=== PATIENT | female | born 1945 | race Caucasian/White ===

== ENCOUNTER 2016-06-20 13:57 | Emergency (ER) | payer MEDICARE, OTHER ==
[~2016-06-20] VITALS: Ht 157.5 cm; Wt 68.0 kg
[2016-06-20 14:46] LABS: ANION GAP 11 (5-14); CALCIUM, SERUM 10.4 mg/dL (8.5-10.1); CARBON DIOXIDE 29 mmol/L (21-32); CHLORIDE 100 mmol/L (98-107); CREATININE 0.9 mg/dL (0.6-1.3); GFR 62 mL/min (>60); GLUCOSE 122 mg/dL (74-106); SODIUM SERUM 136 mmol/L (136-145); UREA NITROGEN, BLOOD 17 mg/dL (7-18)
[2016-06-20 14:52] LABS: BASOPHILS # (AUTO) 0.2 /CMM (0.0-0.2); BASOPHILS % (AUTO) 1.5 % (0.0-2.0); DIFF TOTAL % 100 %; EOSINOPHILS % (AUTO) 0.3 % (0.0-6.0); HEMATOCRIT 46 % (33-45); HEMOGLOBIN 15.3 g/dL (11.5-14.8); LYMPHOCYTES # (AUTO) 1.9 /CMM (0.8-4.8); LYMPHOCYTES % (AUTO) 13.7 % (20.0-44.0); MEAN CORPUSCULAR HEMOGLOBIN 29 PG (26.0-33.0); MEAN CORPUSCULAR HGB CONC 34 g/dl (31.0-36.0); MEAN CORPUSCULAR VOLUME 86 fL (82-100); MONOCYTES # (AUTO) 0.6 /CMM (0.1-1.30); NEUTROPHILS # (AUTO) 11.2 /CMM (1.8-8.9); NEUTROPHILS % (AUTO) 80.5 % (43.0-81.0); PLATELET COUNT (AUTO) 288 /CMM (150-450); RED BLOOD CELL COUNT(AUTO) 5.32 MIL/uL (4.0-5.2); WHITE BLOOD COUNT (AUTO) 13.9 K/uL (4.3-11.0)
[2016-06-20 14:56] LABS: TROPONIN I < 0.017 ng/mL (0.00-0.056)
[2016-06-20 15:18] VITALS: BP 146/84
== END 2016-06-20 15:20 | disposition home or self-care (01) ==
LOC: ER 14:03
DX: I10 Essential (primary) hypertension (principal)
CPT/HCPCS: 36415; 80048-TC; 84484-TC; 85025-TC; A4606; Z7610

== ENCOUNTER 2018-02-23 18:02 | Emergency (ER) | payer MEDICARE, OTHER ==
[~2018-02-23] VITALS: Ht 157.5 cm; Wt 102.5 kg
--- NOTE | 2018-02-23 18:05 | NUR ---
BIB [facility] 89 FROM CLINIC,SYNCOPE WHILE SITTING IN A CHAIR FOR AN X RAY. CURRENTLY A/OX 4, BREATHING EVEN AND UNLABORED. NO SOB, NAD, VITALS STABLE. SAFETY AND COMFORT MEASURES IN PLACE. AWAITING MD ORDERS.
[2018-02-23] MEDS ORDERED: KETOROLAC TROMETHAMINE INJ 30 MG/ML VIAL ONE (18:18)
[2018-02-23] MEDS ORDERED: IV NS 0.9% 500 ML BAG IV ONE (18:30)
[2018-02-23] MEDS ORDERED: KETOROLAC TROMETHAMINE INJ 30 MG/ML VIAL IV ONE (18:30)
[2018-02-23 18:35] LABS: BASOPHILS # (AUTO) 0.1 /CMM (0.0-0.2); BASOPHILS % (AUTO) 0.9 % (0.0-2.0); EOSINOPHILS % (AUTO) 0.4 % (0.0-6.0); HEMATOCRIT 45 % (33-45); HEMOGLOBIN 14.8 g/dL (11.5-14.8); LYMPHOCYTES # (AUTO) 1.6 /CMM (0.8-4.8); LYMPHOCYTES % (AUTO) 10.7 % (20.0-44.0); MEAN CORPUSCULAR HGB CONC 33 g/dl (31.0-36.0); MEAN CORPUSCULAR VOLUME 87 fL (82-100); MONOCYTES # (AUTO) 0.5 /CMM (0.1-1.30); MONOCYTES % (AUTO) 3.2 % (2.0-12.0); NEUTROPHILS # (AUTO) 12.3 /CMM (1.8-8.9); NEUTROPHILS % (AUTO) 84.8 % (43.0-81.0); PLATELET COUNT (AUTO) 289 /CMM (150-450); RDW COEFFICIENT OF VARIATION 13.6 (11.5-15.0); RED BLOOD CELL COUNT(AUTO) 5.16 MIL/uL (4.0-5.2); WHITE BLOOD COUNT (AUTO) 14.6 K/uL (4.3-11.0)
[2018-02-23 18:42] LABS: POTASSIUM 3.7 mmol/L (3.5-5.1)
--- NOTE | 2018-02-23 18:48 | NUR ---
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
--- NOTE | 2018-02-23 19:45 | NUR ---
IV removed. Catheter intact and site benign. Pressure and 4x4 applied to site. No bleeding noted. Patient discharged to home in stable condition. Written and verbal after care instructions given. Patient verbalizes understanding of instruction. ambulatory with a steady gait noted. pt aaox4 no acute distress noted, resp even and unlabored. pt family member at bedside to take pt home.
[2018-02-23 19:47] VITALS: BP 137/67
== END 2018-02-23 19:57 | disposition home or self-care (01) ==
LOC: ER 18:03
DX: S42.431A Displaced fracture (avulsion) of lateral epicondyle of right humerus, initial encounter for closed fracture (principal); R55 Syncope and collapse; I10 Essential (primary) hypertension; Z98.890 Other specified postprocedural states; W01.0XXA Fall on same level from slipping, tripping and stumbling without subsequent striking against object, initial encounter; Y93.89 Activity, other specified; Y92.89 Other specified places as the place of occurrence of the external cause; Y99.8 Other external cause status
CPT/HCPCS: 36415; 73080-TC; 80048-TC; 85025-TC; A4606; J1885; J7040; Z7610

== ENCOUNTER 2021-08-21 11:25 | Emergency (ER) | payer MEDICARE, OTHER ==
[~2021-08-21] VITALS: Ht 154.9 cm; Wt 90.7 kg
--- NOTE | 2021-08-21 11:59 | NUR ---
pt came in c/o neck pain which started yesturday, pt c/o neck pain 03/07.
[2021-08-21] MEDS ORDERED: ACETAMINOPHEN 325 MG TABLET PO ONE (12:30)
[2021-08-21] MEDS ORDERED: LIDOCAINE 5% (PATCH) 1 EA PATCH TP SCH (12:30)
[2021-08-21] MEDS ORDERED: DIAZEPAM 5 MG TABLET PO ONE ×2 (12:30)
[2021-08-21] MEDS ORDERED: ACETAMINOPHEN 325 MG TABLET ONE (12:36)
[2021-08-21] MEDS ORDERED: DIAZEPAM 5 MG TABLET ONE (12:36)
--- NOTE | 2021-08-21 13:02 | NUR ---
TAKEN TO CT
--- NOTE | 2021-08-21 14:30 | NUR ---
Patient discharged to home in stable condition. Written and verbal after care instructions given. Patient verbalizes understanding of instruction.
[2021-08-21 14:31] VITALS: BP 135/84
== END 2021-08-21 14:31 | disposition home or self-care (01) ==
LOC: ER 11:31
DX: M43.6 Torticollis (principal); I10 Essential (primary) hypertension; Z98.891 History of uterine scar from previous surgery
CPT/HCPCS: 72125-TC

== ENCOUNTER 2022-01-21 12:12 | Emergency (ER) | payer MEDICARE, OTHER ==
[~2022-01-21] VITALS: Ht 162.6 cm; Wt 81.6 kg
--- NOTE | 2022-01-21 12:15 | NUR ---
[id number] C/O LEFT WRIST PAIN AND SWELLING S/P TRIP AND FALL. PLACED ON BED, AAOX4, BREATHING EVEN AND UNLABORED, MELISSA FREE.
--- NOTE | 2022-01-21 12:45 | NUR ---
X-RAY TECH AT BED SIDE
[2022-01-21] MEDS ORDERED: NAPR-1192 PO (13:26)
--- NOTE | 2022-01-21 14:45 | NUR ---
Patient discharged to home in stable condition. Written and verbal after care instructions given. Patient verbalizes understanding of instruction.
[2022-01-21 14:51] VITALS: BP 135/80
== END 2022-01-21 19:00 | disposition home or self-care (01) ==
LOC: ER 12:15
DX: S52.502A Unspecified fracture of the lower end of left radius, initial encounter for closed fracture (principal); S52.612A Displaced fracture of left ulna styloid process, initial encounter for closed fracture; I10 Essential (primary) hypertension; Z98.890 Other specified postprocedural states; W01.0XXA Fall on same level from slipping, tripping and stumbling without subsequent striking against object, initial encounter; Y93.89 Activity, other specified; Y92.89 Other specified places as the place of occurrence of the external cause; Y99.8 Other external cause status
CPT/HCPCS: 73110

== ENCOUNTER 2022-04-03 12:05 | Emergency (ER) | payer MEDICARE, OTHER ==
[~2022-04-03] VITALS: Ht 157.5 cm; Wt 81.6 kg
[~2022-04-03 12:05] MED LIST: NAPR-1192 PO
--- NOTE | 2022-04-03 12:06 | NUR ---
TO ER BED 11, BIBFAMILY FOR RIB PAIN S/P FALL YESTERDAY, DENIES LOC, AAOX3, BREATHING EVEN AND NON LABORED, CONNECTED TO MONITOR, AWAITING MD ORDERS
[2022-04-03 13:00] LABS: BASOPHILS % (AUTO) 0.4 % (0.0-2.0); EOSINOPHILS % (AUTO) 0.4 % (0.0-6.0); HEMATOCRIT 43 % (33-45); HEMOGLOBIN 14.3 g/dL (11.5-14.8); LYMPHOCYTES # (AUTO) 1.6 K/uL (0.8-4.8); LYMPHOCYTES % (AUTO) 14.7 % (20.0-44.0); MEAN CORPUSCULAR HGB CONC 33 g/dl (31.0-36.0); MEAN CORPUSCULAR VOLUME 88 fL (82-100); MONOCYTES # (AUTO) 0.5 K/uL (0.1-1.30); MONOCYTES % (AUTO) 4.5 % (2.0-12.0); NEUTROPHILS # (AUTO) 8.9 K/uL (1.8-8.9); PLATELET COUNT (AUTO) 307 K/uL (150-450); RED BLOOD CELL COUNT(AUTO) 4.91 MIL/uL (4.0-5.2); WHITE BLOOD COUNT (AUTO) 11.2 K/uL (4.3-11.0)
[2022-04-03 13:07] LABS: CALCIUM, SERUM 10.1 mg/dL (8.5-10.1); CARBON DIOXIDE 28 mmol/L (21-32); CHLORIDE 101 mmol/L (98-107); CREATININE 0.6 mg/dL (0.6-1.3); GLUCOSE 117 mg/dL (74-106); POTASSIUM 5.4 mmol/L (3.5-5.1); SODIUM SERUM 136 mmol/L (136-145); UREA NITROGEN, BLOOD 13 mg/dL (7-18)
[2022-04-03] MEDS ORDERED: IBUP-1955 PO (16:07)
[2022-04-03 16:32] VITALS: BP 138/86
--- NOTE | 2022-04-03 16:32 | NUR ---
Patient discharged to home in stable condition. Written and verbal after care instructions given. Patient verbalizes understanding of instruction.
== END 2022-04-03 16:32 | disposition home or self-care (01) ==
LOC: ER 12:08
DX: R07.89 Other chest pain (principal); S60.222A Contusion of left hand, initial encounter; I10 Essential (primary) hypertension; Z79.1 Long term (current) use of non-steroidal anti-inflammatories (NSAID); W18.30XA Fall on same level, unspecified, initial encounter; Y93.89 Activity, other specified; Y92.89 Other specified places as the place of occurrence of the external cause; Y99.8 Other external cause status
CPT/HCPCS: 36415; 71045-TC; 73130-TC; 80048-TC; 84484-TC; 85025-TC